=== PATIENT | male | born 1980 | race Caucasian/White ===

== ENCOUNTER 2017-01-13 21:07 | Emergency (ER) | payer OTHER ==
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
== END 2017-01-13 22:35 | disposition home or self-care (01) ==
LOC: ER 21:07
DX: S09.93XA Unspecified injury of face, initial encounter (principal); W10.8XXA Fall (on) (from) other stairs and steps, initial encounter; Y93.89 Activity, other specified; Y99.8 Other external cause status; Y92.89 Other specified places as the place of occurrence of the external cause
CPT/HCPCS: 99283

== ENCOUNTER 2018-02-04 07:39 | Emergency (ER) | payer OTHER ==
[2018-02-04 07:40] VITALS: BP 127/73
[2018-02-04] MEDS ORDERED: FLUORESCEIN 1MG EYE STRIP. ONE (07:46)
[2018-02-04] MEDS ORDERED: TETRACAINE 0.5% OPHTH SOLUTION 4ML BOTTLE. ONE (07:46)
[2018-02-04] MEDS ORDERED: POLY10DR LEFTEYE (07:58)
--- NOTE | 2018-02-04 07:59 | PHYS DOC ---
Past History Past Medical History: Diabetes, Hypertension Past Surgical History: Appendectomy Alcohol Use: Occasionally Drug Use: None Adult General Chief Complaint Chief Complaint: EYE PROBLEMS HPI HPI 37-year-old male patient with history of hypertension and diabetes complaining of foreign body sensation in left eye for the last 5 office with sensitivity to light. Patient states his and his son saw some spots in his eye. 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 Patient denies nausea and vomiting and fever and chills. Review of Systems Review of Systems Constitutional: Denies fever or chills [] Eyes: Denies change in visual acuity, reports redness and foreign body sensation HENT: Denies nasal congestion or sore throat [] Respiratory: Denies cough or shortness of breath [] Cardiovascular: No additional information not addressed in HPI [] GI: Denies abdominal pain, nausea, vomiting, bloody stools or diarrhea [] : Denies dysuria or hematuria [] Musculoskeletal: Denies back pain or joint pain [] Integument: Denies rash or skin lesions [] Neurologic: Denies headache, focal weakness or sensory changes [] Endocrine: Denies polyuria or polydipsia [] All other systems were reviewed and found to be within normal limits, except as documented in this note. Current Medications Current Medications Current Medications Medications (Trade) Dose Ordered Sig/Jayjay Start Time Stop Time Status Last Admin Dose Admin Fluorescein Sodium (Ful-Narcisa 1mg) 1 strip STK-MED ONCE 02/04/18 07:46 02/04/18 07:47 DC Tetracaine HCl (Tetracaine) 40 drop STK-MED ONCE 02/04/18 07:46 02/04/18 07:47 DC Allergies Allergies Allergies Coded Allergies Type Severity Reaction Last Updated Verified No Known Drug Allergies 02/04/18 No Physical Exam Physical Exam Constitutional: Well developed, well nourished, mild distress, non-toxic appearance. [] HENT: Normocephalic, atraumatic Eyes: PERRLA, EOMI, left conjunctiva erythema, no discharge, small foreign body in 4 o.clock of left cornea. [] Neck: Normal range of motion, no tenderness, supple, no stridor. [] Cardiovascular:Heart rate regular rhythm, no murmur [] Lungs & Thorax: Bilateral breath sounds clear to auscultation [] Extremities: No tenderness, no cyanosis, no clubbing, ROM intact, no edema. [] Neurologic: Alert and oriented X 3, normal motor function, normal sensory function, no focal deficits noted. [] Psychologic: Affect normal, judgement normal, mood normal. [] Current Patient Data Vital Signs Vital Signs Date Time Temp Pulse Resp B/P (MAP) Pulse Ox O2 Delivery O2 Flow Rate FiO2 02/04/18 07:40 98.0 91 16 99 Room Air EKG EKG [] Radiology/Procedures Radiology/Procedures [] Course & Med Decision Making Course & Med Decision Making Pertinent Labs and Imaging studies reviewed. (See chart for details) [] Dragon Disclaimer Dragon Disclaimer This electronic medical record was generated, in whole or in part, using a voice recognition dictation system. Foreign Body Removal Procedure Indication: [Left corneal foreign body] Procedure: Left cornea foreign body. Both after applying local tetracaine with 27-gauge needle without problem or remaining residual The patient tolerated the procedure [well]. Complications: [none Departure Departure: Impression: Primary Impression: Foreign body of left cornea Disposition: 01 HOME, SELF-CARE (At 0756) Condition: IMPROVED Referrals: DEX TRINH DO (PCP) Patient Instructions: Eye - Corneal Foreign Body Scripts Polymyxin B Sulf/Trimethoprim (POLYTRIM EYE DROPS) 10 Ml Drops 1 DROP LEFTEYE Q6HRS for 5 Days, #10 ML Prov: KAREN PAPPAS MD 02/04/18 KAREN PAPPAS MD Feb 04, 2018 07:59
== END 2018-02-04 08:04 | disposition home or self-care (01) ==
LOC: ER 07:39
DX: T15.02XA Foreign body in cornea, left eye, initial encounter (principal); E11.9 Type 2 diabetes mellitus without complications; I10 Essential (primary) hypertension
CPT/HCPCS: 65220; 99284

== ENCOUNTER 2018-03-16 21:01 | Emergency (ER) | payer OTHER ==
[~2018-03-16] VITALS: Ht 190.5 cm; Wt 126.0 kg
[2018-03-16 21:01] VITALS: BP 107/56
[~2018-03-16 21:01] MED LIST: POLY10DR LEFTEYE
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
--- NOTE | 2018-03-16 21:47 | RAD ---
Three-view left hand radiographs 03/16/2018 CLINICAL HISTORY: Left hand injury. PA, lateral and oblique digital radiographs of the left hand were obtained. No fracture or dislocation of the left hand is seen. No radiopaque foreign body is noted. IMPRESSION: No fracture or dislocation of the left hand is seen. Electronically signed by: Shravan Barkley MD (03/16/2018 9:44 PM) [facility]
== END 2018-03-16 21:50 | disposition home or self-care (01) ==
LOC: ER 21:01
DX: S60.222A Contusion of left hand, initial encounter (principal); E11.9 Type 2 diabetes mellitus without complications; I10 Essential (primary) hypertension; S00.83XA Contusion of other part of head, initial encounter; Y04.0XXA Assault by unarmed brawl or fight, initial encounter; Y93.89 Activity, other specified; Y99.8 Other external cause status; Y92.89 Other specified places as the place of occurrence of the external cause
CPT/HCPCS: 73130; 99284

== ENCOUNTER 2018-11-08 23:54 | Emergency (ER) | payer OTHER ==
[~2018-11-08] VITALS: Ht 190.5 cm; Wt 132.0 kg
[2018-11-08 23:57] VITALS: BP 168/113
--- NOTE | 2018-11-09 00:59 | PHYS DOC ---
Past History Past Medical History: Diabetes, Hypertension Past Surgical History: Appendectomy Alcohol Use: None Drug Use: None Adult General Chief Complaint Chief Complaint: COUGH HPI HPI Patient is a 38 yo male w/ pmh diabetes and htn who presents with complaint of cough, congestion, and body aches for 7-10 days. When symptoms began patient went to urgent care (last week) and was swabbed for strep which was negative. Patient reports he has a nonproductive cough that is occasionally so severe that he gags and occasionally vomits. Patient also reports nasal congestion and diffuse muscle aches. He reports his son had similar symptoms last week which resolved. He also reports travel to [place] in October. He denies chest pain , headaches, dizziness, itchy eyes, ringing in ears, nausea. He is up to date on flu shot. Review of Systems Review of Systems Constitutional: Denies fever or chills [] Eyes: Denies change in visual acuity, eyes itchiness HENT: admits nasal congestion, denies nasal discharge. Denies sinus pressure. Respiratory: Admits nonproductive cough Cardiovascular: Denies chest pain, pressure or palpitations. Admits to chest tightness. Musculoskeletal: Denies back pain or joint pain, admits to muscle aches Neurologic: Denies headache, focal weakness or sensory changes [] Complete systems were reviewed and found to be within normal limits, except as documented in this note. Current Medications Current Medications Current Medications Medications (Trade) Dose Ordered Sig/Jayjay Start Time Stop Time Status Last Admin Dose Admin Dexamethasone (Decadron) 10 mg 1X ONCE 11/09/18 01:00 11/09/18 01:01 11/09/18 00:31 10 MG Allergies Allergies Allergies Coded Allergies Type Severity Reaction Last Updated Verified No Known Drug Allergies 02/04/18 No Physical Exam Physical Exam Constitutional: Well developed, well nourished, no acute distress, non-toxic appearance. HENT: Normocephalic, atraumatic, bilateral TMs pink w/ good cone of light oropharynx moist, no oral exudates, nose normal. Eyes: PERRL, EOMI, conjunctiva normal, no discharge. Neck: Normal range of motion, no tenderness, supple, no meningeal signs r. Cardiovascular: Tachycardic, regular rhythm, no murmur Lungs & Thorax: Coarse breath sounds in bl lower lobes. Abdomen: Soft, no tenderness Skin: Warm, dry, no erythema, no rash. Extremities: No tenderness, ROM intact, no edema. Neurologic: Alert and oriented X 3, normal motor function, normal sensory function, no focal deficits noted. Psychologic: Affect normal, judgement normal, mood normal. EKG EKG [] Radiology/Procedures Radiology/Procedures 2 view CXR (preliminary interpretation by ED physician): no acute process. Course & Med Decision Making Course & Med Decision Making Patient is 38 yo nonsmoking male w/ PMH DM and htn who presented with complaint of dry cough, nasal congestion, and diffuse muscle aches for 1 week. Patient was swabbed for strep at outside facility which he reports was negative. On physical exam he is afebrile, tachycardic and mildly hypertensive at rest in bed. Lung sounds revealed moderate rhonchi bilaterally through lower lung khan. The rest of physical exam was unremarkable. Patient tested negative for flu A/B. Chest xray unremarkable. Discussed with patient that he likely had bronchitis d/t lung sounds, dry cough, and unremarkable xray. Treated patient with dexamethasone. Prescribed tesslon pearle, pro air, and prednisone for home. Discussed with patient the purpose of each medication and that he could return to work. Patient vocalized understanding and agreement with plan. Dragon Disclaimer Dragon Disclaimer This electronic medical record was generated, in whole or in part, using a voice recognition dictation system. Departure Departure: Impression: Primary Impression: Bronchitis Disposition: 01 HOME, SELF-CARE Condition: STABLE Referrals: DEX TRINH DO (PCP) Patient Instructions: Acute Bronchitis, Gijv-um-Ptak Scripts Benzonatate (TESSALON PERLE) 100 Mg Capsule 1 CAP PO TID PRN for COUGH, #21 CAP Prov: SHEELA MURPHY DO 11/09/18 Prednisone (PREDNISONE) 20 Mg Tablet 2 TAB PO DAILY for Bronchitis, #8 TAB Start this on 11/10/18 Prov: SHEELA MURPHY DO 11/09/18 Albuterol Sulfate (PROAIR HFA INHALER) 8.5 Gm Hfa.aer.ad 1 PUFF INH PRN Q6HRS PRN for WHEEZING, #1 INHALER 0 Refills Prov: SHEELA MURPHY DO 11/09/18 SHEELA MURPHY DO Nov 09, 2018 00:59
[2018-11-09] MEDS ORDERED: DEXAMETHASONE 4 MG TABLET PO ONE (01:00)
[2018-11-09 01:06] LABS: INFLUENZA A PATIENT NEGATIVE (NEGATIVE); INFLUENZA B PATIENT NEGATIVE (NEGATIVE)
[2018-11-09] MEDS ORDERED: PRED20TA PO (01:15)
[2018-11-09] MEDS ORDERED: ALBU2.5V8 INH (01:15)
[2018-11-09] MEDS ORDERED: BENZ100C PO (01:15)
--- NOTE | 2018-11-09 08:15 | RAD ---
Chest, 2 views, 11/09/2018: HISTORY: Cough, congestion The heart size and pulmonary vascularity are normal. No pulmonary infiltrate is seen. There is no evidence of pleural fluid. IMPRESSION: No acute cardiopulmonary abnormality is detected. Electronically signed by: Taiwo Hendricks MD (11/09/2018 8:10 AM) [facility]
== END 2018-11-09 01:27 | disposition home or self-care (01) ==
LOC: ER 23:54
DX: J40 Bronchitis, not specified as acute or chronic (principal); E11.9 Type 2 diabetes mellitus without complications; I10 Essential (primary) hypertension
CPT/HCPCS: 71046; 87804; 99284; J8540

== ENCOUNTER 2019-07-11 16:58 | Emergency (ER) | payer OTHER ==
[~2019-07-11] VITALS: Ht 190.5 cm; Wt 133.0 kg
[~2019-07-11 16:58] MED LIST changes: +ALBU2.5V8 INH; +BENZ100C PO; +PRED20TA PO
--- NOTE | 2019-07-11 17:13 | PHYS DOC ---
Past History Past Medical History: Anxiety, Diabetes, Hypertension (BRITTANIE AGUSTIN DO) Past Surgical History: Appendectomy (BRITTANIE AGUSTIN DO) Smoking: Non-smoker Alcohol Use: None Drug Use: None (BRITTANIE AGUSTIN DO) Adult General Chief Complaint Chief Complaint: CHEST PAIN HPI HPI Patient is a 39-year-old male presents with chest pain that has been going on for the past several days along with high blood pressure. Patient is treated for high blood pressure and diabetes. Notes that he normally runs a fast heart rate that "is somewhere over 100." He denies any radiation of the discomfort. No nausea or vomiting. No respirophasic component to it no worsening with exertion. Pain is mild to moderate in intensity. No family history of early cardiac disease. Patient denies any PE risk factors to include trauma, stasis, or known hypercoagulable state.[] (BRITTANIE AGUSTIN DO) Review of Systems Review of Systems Constitutional: Denies fever or chills [] Eyes: Denies change in visual acuity, redness, or eye pain [] HENT: Denies nasal congestion or sore throat [] Respiratory: Denies cough or shortness of breath [] Cardiovascular: No additional information not addressed in HPI [] GI: Denies abdominal pain, nausea, vomiting, bloody stools or diarrhea [] : Denies dysuria or hematuria [] Musculoskeletal: Denies back pain or joint pain [] Integument: Denies rash or skin lesions [] Neurologic: Denies headache, focal weakness or sensory changes [] Endocrine: Denies polyuria or polydipsia [] All other systems were reviewed and found to be within normal limits, except as documented in this note. (BRITTANIE AGUSTIN DO) Allergies Allergies Allergies Coded Allergies Type Severity Reaction Last Updated Verified No Known Drug Allergies 02/04/18 No (BRITTANIE AGUSTIN DO) Physical Exam Physical Exam Constitutional: Well developed, well nourished, no acute distress, non-toxic appearance. [] HENT: Normocephalic, atraumatic, bilateral external ears normal, oropharynx moist, no oral exudates, nose normal. [] Eyes: PERRLA, EOMI, conjunctiva normal, no discharge. [] Neck: Normal range of motion, no tenderness, supple, no stridor. [] Cardiovascular:Heart rate is tachycardic with a regular rhythm, no murmur [] Lungs & Thorax: Bilateral breath sounds clear to auscultation [] Abdomen: Bowel sounds normal, soft, no tenderness, no masses, no pulsatile masses. [] Skin: Warm, dry, no erythema, no rash. [] Back: No tenderness, no CVA tenderness. [] Extremities: No tenderness, no cyanosis, no clubbing, ROM intact, no edema. [] Neurologic: Alert and oriented X 3, normal motor function, normal sensory function, no focal deficits noted. [] Psychologic: Affect normal, judgement normal, mood normal. [] (BRITTANIE AGUSTIN DO) EKG EKG EKG shows a sinus tachycardia at 114 bpm, normal axis, normal QTC, no ST elevations. No old EKG available for comparison. Interpreted by me at 1707[] (BRITTANIE AGUSTIN DO) Radiology/Procedures Radiology/Procedures [] (BRITTANIE AGUSTIN DO) Impressions: PORTABLE CHEST 1V History: Chest pain Comparison: November 09, 2018 Findings: No consolidation or pleural effusion. Normal heart size. Impression: 1. No acute cardiopulmonary process. Electronically signed by: Dutch Reis DO (07/11/2019 5:45 PM) [id number] DICTATED AND SIGNED BY: DUTCH REIS DO DATE: 07/11/191744 CC: DULCE HADLEY MD; BRITTANIE AGUSTIN DO ~ (CASSANDRA GALEAS DO) Course & Med Decision Making Course & Med Decision Making Pertinent Labs and Imaging studies reviewed. (See chart for details) ED course: Patient arrived, was placed in bed, and tolerated exam well. He was given aspirin. At the time of this dictation, laboratory testing is in process along with imaging. Patient care is being endorsed to the nighttime physician at 1800 with these results in progress.[] (BRITTANIE AGUSTIN DO) Course & Med Decision Making Patient's EKG is unremarkable. His chest x-ray is unremarkable. His troponin is negative. D-dimer is negative. The patient's blood sugars over 300. We will give the patient a liter of normal saline. His anion gap is 15. This is one above normal. I suspect his discomfort is mostly due to his elevated blood sugar. The patient is on diabetes medication, but does not check his blood sugar daily. He has a meter and will start taking it every morning. He is due for follow-up as he change medications 3 months ago. The 1 L fluid has improved the patient's heart rate to the 90s. His blood pressure is normal. The patient will follow up with his primary care physician about his diabetes. We gave him 5 units of regular insulin. His repeat blood sugar was 202. He is stable for discharge at this time. (CASSANDRA GALEAS DO) Dragon Disclaimer Dragon Disclaimer This electronic medical record was generated, in whole or in part, using a voice recognition dictation system. (BRITTANIE AGUSTIN DO) The HEART Score for CP Pts HEART Score for Chest Pain: HEART Score for Chest Pain Response (Comments) Value History Moderately Suspicious 1 ECG Normal 0 Age < 45 0 Risk Factors 1 or 2 Risk Factors 1 Troponin < Normal Limit 0 Total 2 Risk Factors: Risk Factors: DM, Current or recent (<one month) smoker, HTN, HLP, family history of CAD, obesity. Risk Scores: Score 0 - 3: 2.5% MACE over next 6 weeks - Discharge Home Score 4 - 6: 20.3% MACE over next 6 weeks - Admit for Clinical Observation Score 7 - 10: 72.7% MACE over next 6 weeks - Early Invasive Strategies (CASSANDRA GALEAS DO) Departure Departure: Impression: Primary Impression: Hyperglycemia due to type 2 diabetes mellitus Additional Impression: Chest pain Disposition: 01 HOME, SELF-CARE Condition: STABLE Referrals: DULCE HADLEY MD (PCP) Patient Instructions: Chest Pain (Nonspecific), Ecjl-rd-Evbi, Hyperglycemia, Nbqg-gr-Xboz Problem Qualifiers Primary Impression: Hyperglycemia due to type 2 diabetes mellitus Diabetes mellitus fdc insulin use: without fdc use Qualified Codes: E11.65 - Type 2 diabetes mellitus with hyperglycemia Additional Impression: Chest pain Chest pain type: other chest pain Qualified Codes: R07.89 - Other chest pain BRITTANIE AGUSTIN DO Jul 11, 2019 17:13 CASSANDRA GALEAS DO Jul 11, 2019 18:55
--- NOTE | 2019-07-11 17:13 | EKG ---
[address] [address] Test Date: 2019-07-11 Test Time: 17:05:27 Pat Name: ALFREDO BURNS Department: Room: Gender: M Staff Therapist: GAIL : [id number] Requested By: BRITTANIE AGUSTIN Order Number: [id number] Reading MD: Measurements Intervals [place] Rate: 114 P: -8 SD: 160 QRS: 52 QRSD: 92 T: 25 QT: 312 QTc: 433 Interpretive Statements SINUS TACHYCARDIA QRS(T) CONTOUR ABNORMALITY CONSIDER ANTEROLATERAL MYOCARDIAL DAMAGE POSSIBLY ABNORMAL ECG RI6.01 No previous ECG available for comparison
[2019-07-11] MEDS ORDERED: ASPIRIN 81 MG TAB.CHEW PO ONE (17:30)
[2019-07-11 17:42] LABS: BASO # 0.1 x10^3/uL (0.0-0.2); BASO % 1 % (0-3); EOS # 0.1 x10^3/uL (0.0-0.7); EOS % 2 % (0-3); HEMATOCRIT 43.5 % (39.0-53.0); HEMOGLOBIN 15.1 g/dL (13.0-17.5); LYMPH # 2.2 x10^3/uL (1.0-4.8); LYMPH % 41 % (24-48); MEAN CORPUSCULAR HEMOGLOBIN 32 pg (25-35); MEAN CORPUSCULAR HGB CONC 35 g/dL (31-37); MEAN CORPUSCULAR VOLUME 91 fL (79-100); MONO # 0.4 x10^3/uL (0.0-1.1); MONO % 7 % (0-9); NEUT # 2.7 x10^3uL (1.8-7.7); NEUT % 49 % (31-73); PLATELET COUNT 278 x10^3/uL (140-400); RED BLOOD COUNT 4.75 x10^6/uL (4.30-5.70); RED CELL DISTRIBUTION WIDTH 12.6 % (11.5-14.5); WHITE BLOOD COUNT 5.5 x10^3/uL (4.0-11.0)
[2019-07-11 17:47] LABS: BARBITURATES NEG (NEG); BENZODIAZEPINES NEG (NEG); CANNABINOIDS NEG (NEG); COCAINE NEG (NEG); METHADONE NEG (NEG); OPIATES NEG (NEG); PHENCYCLIDINE NEG (NEG)
--- NOTE | 2019-07-11 17:47 | RAD ---
PORTABLE CHEST 1V History: Chest pain Comparison: November 09, 2018 Findings: No consolidation or pleural effusion. Normal heart size. Impression: 1. No acute cardiopulmonary process. Electronically signed by: Dutch Reis DO (07/11/2019 5:45 PM) [id number]
[2019-07-11 17:49] LABS: AMPHETAMINE/METHAMPHETAMINE NEG (NEG)
[2019-07-11 17:55] LABS: ALBUMIN/GLOBULIN RATIO 1.2 (1.0-1.7); CALCIUM 9.1 mg/dL (8.5-10.1); CREATININE 1.1 mg/dL (0.7-1.3); GFR 74.1; MAGNESIUM 1.4 mg/dL (1.8-2.4); POTASSIUM 4.3 mmol/L (3.5-5.1); TOTAL BILIRUBIN 0.5 mg/dL (0.2-1.0); TOTAL PROTEIN 7.4 g/dL (6.4-8.2)
[2019-07-11 18:45] LABS: BACTERIA,URINE 0 /HPF (0-FEW); BILIRUBIN,URINE NEG (NEG); CLARITY,URINE CLEAR; COLOR,URINE YELLOW; GLUCOSE,URINE >=1000 mg/dL (NEG); NITRITE,URINE NEG (NEG); RBC,URINE 0 /HPF (0-2); SQUAMOUS EPITHELIAL CELL,UR OCC /LPF; UROBILINOGEN,URINE 0.2 mg/dL (0.2 mg/dL); WBC,URINE OCC /HPF (0-4)
[2019-07-11] MEDS ORDERED: IV NORMAL SALINE 1,000ML 1,000 ML IV ONE (18:45)
[2019-07-11] MEDS ORDERED: INSULIN REGULAR 100 UNIT/ML 3ML VIAL. IV ONE (19:15)
[2019-07-11 19:31] VITALS: BP 139/83
== END 2019-07-11 19:47 | disposition home or self-care (01) ==
LOC: ER 16:58
DX: E11.65 Type 2 diabetes mellitus with hyperglycemia (principal); R07.89 Other chest pain; I10 Essential (primary) hypertension; F41.9 Anxiety disorder, unspecified
CPT/HCPCS: 36415; 71045; 80053; 80307; 81001; 82947; 83690; 83735; 83880; 84443; 84484; 85025; 85379; 85610; 85730; 93005; 96374; 99285; J1815; J7030

== ENCOUNTER 2019-12-30 15:25 | Emergency (ER) | payer OTHER ==
[~2019-12-30] VITALS: Ht 190.5 cm; Wt 136.0 kg
[2019-12-30 15:43] VITALS: BP 114/76
--- NOTE | 2019-12-30 16:07 | RAD ---
Examination: ELBOW RIGHT 3V History: Swelling and pain Comparison/Correlation: 12/27/2019 right elbow x-ray exam Findings: 3 images of the right elbow were obtained. Joint spaces are normal. Enthesopathy is noted. No fracture or bone destruction. Soft tissue swelling posterior to the elbow is present. This is more evident in the interval. No joint effusion. Impression: Triceps bursitis. Electronically signed by: Hermilo Small MD (12/30/2019 4:04 PM) [id number]
--- NOTE | 2019-12-30 16:42 | PHYS DOC ---
Past History Past Medical History: Anxiety, Diabetes, Hypertension Past Surgical History: Appendectomy Smoking: Non-smoker Alcohol Use: Occasionally Drug Use: None Adult General Chief Complaint Chief Complaint: UPPER EXTREMITY PAIN HPI HPI 39-year-old male presents with right elbow swelling and pain. The patient started pain while he was at work yesterday. It occurred spontaneously with no inciting event. He was seen in urgent care and hold it was inflammation for bone spur. X-rays were negative at that time. The patient presents to the ER today because the swelling is worse, it feels warm to the touch, and is quite painful. He denies trauma. He denies fever or chills. No history of gout or DVT. Review of Systems Review of Systems Constitutional: Denies fever or chills [] Eyes: Denies change in visual acuity, redness, or eye pain [] HENT: Denies nasal congestion or sore throat [] Respiratory: Denies cough or shortness of breath [] Cardiovascular: No additional information not addressed in HPI [] GI: Denies abdominal pain, nausea, vomiting, bloody stools or diarrhea [] : Denies dysuria or hematuria [] Musculoskeletal: Right elbow pain[] Integument: Denies rash or skin lesions [] Neurologic: Denies headache, focal weakness or sensory changes [] Endocrine: Denies polyuria or polydipsia [] All other systems were reviewed and found to be within normal limits, except as documented in this note. Allergies Allergies Allergies Coded Allergies Type Severity Reaction Last Updated Verified No Known Drug Allergies 02/04/18 No Physical Exam Physical Exam Constitutional: Well developed, well nourished, no acute distress, non-toxic appearance. [] HENT: Normocephalic, atraumatic, bilateral external ears normal, oropharynx moist, no oral exudates, nose normal. [] Eyes: PERRLA, EOMI, conjunctiva normal, no discharge. [] Neck: Normal range of motion, no tenderness, supple, no stridor. [] Cardiovascular:Heart rate regular rhythm, no murmur [] Lungs & Thorax: Bilateral breath sounds clear to auscultation [] Abdomen: Bowel sounds normal, soft, no tenderness, no masses, no pulsatile masses. [] Skin: Warm, dry, no erythema, no rash. [] Back: No tenderness, no CVA tenderness. [] Extremities: Right arm and forearm to the mid humerus is swollen and taunt. Some erythema and warmth. No obvious abscess or sentinel location for infection.[] Neurologic: Alert and oriented X 3, normal motor function, normal sensory function, no focal deficits noted. [] Psychologic: Affect normal, judgement normal, mood normal. [] Current Patient Data Vital Signs Vital Signs Date Time Temp Pulse Resp B/P (MAP) Pulse Ox O2 Delivery O2 Flow Rate FiO2 12/30/19 15:43 99.0 116 18 114/76 (89) 98 Room Air EKG EKG [] Radiology/Procedures Radiology/Procedures [] Impressions: EXAM: Right upper extremity venous Doppler sonogram. HISTORY: Pain and swelling. TECHNIQUE: Stone scale and color Doppler sonographic evaluation of the right upper extremity veins with spectral waveform analysis was performed. FINDINGS: There is normal color flow, normal compressibility and there are normal spectral waveforms in the upper extremity veins. IMPRESSION: No Doppler evidence of upper extremity deep venous thrombosis. Electronically signed by: Kelsie Hubbard MD (12/30/2019 5:22 PM) [id number] DICTATED AND SIGNED BY: KELSIE HUBBARD MD DATE: 12/30/19 1722 CC: CASSANDRA GALEAS DO; MARGARITO JONES PAC ~ Addendum: In the impression, terminology of triceps bursitis was utilized. More commonly used, terminology of olecranon bursitis corresponds to the findings present. Electronically signed by: Hermilo Cifuentes MD (12/30/2019 4:23 PM) [id number] DICTATED AND SIGNED BY: HERMILO CIFUENTES MD DATE: 12/30/19 1623 CC: CASSANDRA GALEAS DO; MARGARITO JONES PAC ~ Examination: ELBOW RIGHT 3V History: Swelling and pain Comparison/Correlation: 12/27/2019 right elbow x-ray exam Findings: 3 images of the right elbow were obtained. Joint spaces are normal. Enthesopathy is noted. No fracture or bone destruction. Soft tissue swelling posterior to the elbow is present. This is more evident in the interval. No joint effusion. Impression: Triceps bursitis. Electronically signed by: Hermilo Cifuentes MD (12/30/2019 4:04 PM) [id number] DICTATED AND SIGNED BY: HERMILO CIFUENTES MD DATE: 12/30/19 1604 CC: CASSANDRA GALEAS DO; MARGARITO JONES PAC ~ Course & Med Decision Making Course & Med Decision Making Pertinent Labs and Imaging studies reviewed. (See chart for details) Patient's x-rays negative for acute findings. His ultrasound does not show DVT. His labs are unremarkable except for a blood sugar of 230. His uric acid is normal. I believe is most likely that this is cellulitis. I will treat him with a gram of Rocephin in the ED and discharge him an additional 7 days of doxycycline. [] Dragon Disclaimer Dragon Disclaimer This electronic medical record was generated, in whole or in part, using a voice recognition dictation system. Departure Departure: Impression: Primary Impression: Cellulitis of right arm Additional Impression: Hyperglycemia Disposition: 01 HOME, SELF-CARE Condition: STABLE Referrals: MARGARITO JONES PAC (PCP) Patient Instructions: Cellulitis, [id number] Scripts Doxycycline Hyclate (DOXYCYCLINE HYCLATE) 100 Mg Tablet 1 TAB PO BID for cellulitis, #14 TAB Prov: CASSANDRA GALEAS DO 12/30/19 Problem Qualifiers CASSANDRA GALEAS DO Dec 30, 2019 16:42
[2019-12-30] MEDS ORDERED: KETOROLAC 30 MG/ML VIAL. IVP ONE (17:15)
--- NOTE | 2019-12-30 17:25 | RAD ---
EXAM: Right upper extremity venous Doppler sonogram. HISTORY: Pain and swelling. TECHNIQUE: Stone scale and color Doppler sonographic evaluation of the right upper extremity veins with spectral waveform analysis was performed. FINDINGS: There is normal color flow, normal compressibility and there are normal spectral waveforms in the upper extremity veins. IMPRESSION: No Doppler evidence of upper extremity deep venous thrombosis. Electronically signed by: Kelsie Nino MD (12/30/2019 5:22 PM) [id number]
[2019-12-30 17:37] LABS: BASO % 0 % (0-3); EOS % 0 % (0-3); HEMATOCRIT 42.3 % (39.0-53.0); HEMOGLOBIN 14.7 g/dL (13.0-17.5); LYMPH # 1.5 x10^3/uL (1.0-4.8); LYMPH % 15 % (24-48); MEAN CORPUSCULAR HEMOGLOBIN 33 pg (25-35); MEAN CORPUSCULAR HGB CONC 35 g/dL (31-37); MEAN CORPUSCULAR VOLUME 94 fL (79-100); MONO # 1.1 x10^3/uL (0.0-1.1); MONO % 10 % (0-9); NEUT # 7.7 x10^3uL (1.8-7.7); NEUT % 75 % (31-73); PLATELET COUNT 239 x10^3/uL (140-400); RED BLOOD COUNT 4.52 x10^6/uL (4.30-5.70); RED CELL DISTRIBUTION WIDTH 13.3 % (11.5-14.5); WHITE BLOOD COUNT 10.4 x10^3/uL (4.0-11.0)
[2019-12-30 17:42] LABS: CALCIUM 8.9 mg/dL (8.5-10.1); CREATININE 1.1 mg/dL (0.7-1.3); GFR 74.1; POTASSIUM 4.2 mmol/L (3.5-5.1)
[2019-12-30 17:48] LABS: ALBUMIN 3.5 g/dL (3.4-5.0); TOTAL BILIRUBIN 0.7 mg/dL (0.2-1.0); TOTAL PROTEIN 7.1 g/dL (6.4-8.2); URIC ACID 5.6 mg/dL (3.5-7.2)
[2019-12-30] MEDS ORDERED: DOXY100T PO (18:07)
[2019-12-30] MEDS ORDERED: IV NORMAL SALINE 100ML 100 ML ONE (18:12)
[2019-12-30] MEDS ORDERED: cefTRIAXone SODIUM 1 GM VIAL ONE (18:12)
[2019-12-30] MEDS ORDERED: ONDANSETRON PF 4 MG/2 ML VIAL. ONE (18:12)
[2019-12-30] MEDS ORDERED: HYDR-3165 PO (18:13)
[2019-12-30 18:14] LABS: % ATYL 1 % (0-0); % LYMPHS 18 % (24-48); % MONOS 5 % (0-10); % SEGS 76 % (35-66)
[2019-12-30] MEDS ORDERED: MORPHINE SULFATE 4 MG/ML DISP.SYRIN. IV ONE (18:15)
[2019-12-30] MEDS ORDERED: ONDANSETRON PF 4 MG/2 ML VIAL. IVP ONE (18:15)
[2019-12-30 18:18] LABS: PLT ESTIMATE ADEQUATE (ADEQUATE)
== END 2019-12-30 18:35 | disposition home or self-care (01) ==
LOC: ER 15:25
DX: L03.113 Cellulitis of right upper limb (principal); R60.0 Localized edema; E11.65 Type 2 diabetes mellitus with hyperglycemia; F41.9 Anxiety disorder, unspecified; I10 Essential (primary) hypertension; Z90.89 Acquired absence of other organs
CPT/HCPCS: 36415; 73080; 80053; 84550; 85007; 85025; 93971; 96365; 96375; 99285; J0696; J1885; J2270; J2405

== ENCOUNTER 2020-03-01 10:37 | Emergency (ER) | payer OTHER ==
[~2020-03-01] VITALS: Ht 190.5 cm; Wt 140.0 kg
[~2020-03-01 10:37] MED LIST changes: +DOXY100T PO; +HYDR-3165 PO
[2020-03-01 10:45] VITALS: BP 168/100
--- NOTE | 2020-03-01 11:09 | RAD ---
KNEE LEFT 3V History: Pain. Technique: 3 views left knee. Comparison: None. Findings: Normal alignment. No fracture. Prepatellar soft tissue swelling. Small knee joint effusion. Impression: 1. No acute osseous abnormality. 2. Prepatellar soft tissue swelling. Electronically signed by: Dutch Reis DO (03/01/2020 11:06 AM) [facility] [place]
--- NOTE | 2020-03-01 11:22 | PHYS DOC ---
Past History Past Medical History: Anxiety, Depression, Diabetes, Hypertension Past Surgical History: Appendectomy Smoking: Non-smoker Alcohol Use: Occasionally Drug Use: None General Adult EDM: Chief Complaint: KNEE INJURY HPI: HPI: Patient is a 39-year-old male who presents to ER today for evaluation of left knee pain since last night. 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 Patient complained of pain whenever he walks. Patient denies any other injury. Review of Systems: Review of Systems: Constitutional: Denies fever or chills Eyes: Denies change in visual acuity HENT: Denies nasal congestion or sore throat Respiratory: Denies cough or shortness of breath Cardiovascular: Denies chest pain or edema GI: Denies abdominal pain, nausea, vomiting, bloody stools or diarrhea : Denies dysuria Musculoskeletal: Denies back pain, positive for left knee pain. Integument: Denies rash Neurologic: Denies headache, focal weakness or sensory changes Endocrine: Denies polyuria or polydipsia Lymphatic: Denies swollen glands Psychiatric: Denies depression or anxiety Heart Score: Risk Factors: Risk Factors: DM, Current or recent (<one month) smoker, HTN, HLP, family history of CAD, obesity. Risk Scores: Score 0 - 3: 2.5% MACE over next 6 weeks - Discharge Home Score 4 - 6: 20.3% MACE over next 6 weeks - Admit for Clinical Observation Score 7 - 10: 72.7% MACE over next 6 weeks - Early Invasive Strategies Allergies: Allergies: Allergies Coded Allergies Type Severity Reaction Last Updated Verified No Known Drug Allergies 02/04/18 No Physical Exam: PE: Constitutional: Well developed, well nourished, no acute distress, non-toxic appearance. [] HENT: Normocephalic, atraumatic, bilateral external ears normal, oropharynx moist, no oral exudates, nose normal. [] Eyes: PERRLA, EOMI, conjunctiva normal, no discharge. [] Neck: Normal range of motion, no tenderness, supple, no stridor. [] Cardiovascular:Heart rate regular rhythm, no murmur [] Lungs & Thorax: Bilateral breath sounds clear to auscultation [] Abdomen: Bowel sounds normal, soft, no tenderness, no masses, no pulsatile masses. [] Skin: Warm, dry, no erythema, no rash. [] Back: No tenderness, no CVA tenderness. [] Extremities: Left knee is tender to palpation at the medial meniscus area, there is small skin contusion, left knee joint is stable, no deformity. Neurologic: Alert and oriented X 3, normal motor function, normal sensory function, no focal deficits noted. [] Psychologic: Affect normal, judgement normal, mood normal. [] Current Patient Data: Vital Signs: Vital Signs Date Time Temp Pulse Resp B/P (MAP) Pulse Ox O2 Delivery O2 Flow Rate FiO2 03/01/20 10:45 98.8 105 18 168/100 (122) 98 Room Air EKG: EKG: [] Radiology/Procedures: Radiology/Procedures: [][address] [address] IMAGING REPORT Signed PATIENT: ALFREDO BURNS ACCOUNT: [id number] : 1980 LOCATION: ER AGE: 39 SEX: M EXAM STATUS: REG ER ORD. PHYSICIAN: TYLER ZULUAGA DO REASON: Injury from fall 02/29/20, medial pain to left knee PROCEDURE: KNEE LEFT 3V KNEE LEFT 3V History: Pain. Technique: 3 views left knee. Comparison: None. Findings: Normal alignment. No fracture. Prepatellar soft tissue swelling. Small knee joint effusion. Impression: 1. No acute osseous abnormality. 2. Prepatellar soft tissue swelling. Electronically signed by: Dutch Reis DO (03/01/2020 11:06 AM) [facility] [place] DICTATED AND SIGNED BY: DUTCH REIS DO DATE: 03/01/20 1106 CC: TYLER ZULUAGA DO; MARGARITO JONES PAC ~ Course & Med Decision Making: Course & Med Decision Making Pertinent Labs and Imaging studies reviewed. (See chart for details) [] Dragon Disclaimer: Dragon Disclaimer: This electronic medical record was generated, in whole or in part, using a voice recognition dictation system. Departure Departure: Impression: Primary Impression: Contusion of knee, left Disposition: 01 HOME, SELF-CARE Condition: STABLE Referrals: MARGARITO JONES PAC (PCP) please follow up with your doctor next week for reevaluation if you continue to have pain Patient Instructions: Contusion Scripts Tramadol Hcl (TRAMADOL HCL) 50 Mg Tablet 50 MG PO PRN Q6HRS PRN for PAIN, #15 TAB Prov: TYLER ZULUAGA DO 03/01/20 Naproxen Sodium (ANAPROX DS) 550 Mg Tablet 1 TAB PO BID for PAIN for 15 Days, #30 TAB 0 Refills Prov: TYLER ZULUAGA DO 03/01/20 TYLER ZULUAGA DO March 01, 2020 11:22
[2020-03-01] MEDS ORDERED: NAPR-682 PO (11:34)
[2020-03-01] MEDS ORDERED: TRAM50TA PO (11:34)
== END 2020-03-01 11:39 | disposition home or self-care (01) ==
LOC: ER 10:37
DX: S80.02XA Contusion of left knee, initial encounter (principal); E11.9 Type 2 diabetes mellitus without complications; I10 Essential (primary) hypertension; W01.0XXA Fall on same level from slipping, tripping and stumbling without subsequent striking against object, initial encounter; Y93.01 Activity, walking, marching and hiking; Y92.89 Other specified places as the place of occurrence of the external cause; Y99.8 Other external cause status
CPT/HCPCS: 73562; 99283

== ENCOUNTER 2021-06-03 17:23 | Emergency (ER) | payer BC ==
[~2021-06-03] VITALS: Ht 188 cm; Wt 240.0 kg
[~2021-06-03 17:23] MED LIST changes: +NAPR-682 PO; +TRAM50TA PO
--- NOTE | 2021-06-03 18:06 | PHYS DOC ---
Past History Past Medical History: Anxiety, Depression, Diabetes, Hypertension Past Surgical History: Appendectomy Smoking: Non-smoker Alcohol Use: Occasionally Drug Use: None General Adult EDM: Chief Complaint: NAUSEA/VOMITING/DIARRHEA HPI: HPI: ".. I still feel terrible... Still nauseated... Feels short of breath.... My symptoms have not gotten better.... I cannot go back to work until I have a doctor's excuse... They said come to the emergency department and get a work excuse... I do not really want a labs..." Patient is a 41 year old male who presents with above hx and complaints with hx of + COVID May 24. Still having symptoms which have not resolved. Pt. did not get the COVID vaccination. Pt. works requires an work excuse because it has been over 6 days since diagnosis. Patient denies any recent travel. Patient denies any sick ill contacts. Patient denies any history of immunosuppression. Patient works with meat processing. Review of Systems: Review of Systems: Constitutional: Denies fever or chills Eyes: Denies change in visual acuity HENT: Denies nasal congestion or sore throat. Complains of loss of taste Respiratory: Complains of nonproductive cough Cardiovascular: Complaints of dyspnea GI: Complains of abdominal pain, nausea, vomiting, bloody stools or diarrhea : Denies dysuria Musculoskeletal: Complains of generalized myalgia arthralgia and malaise Integument: Denies rash Neurologic: Denies headache, focal weakness or sensory changes Endocrine: Denies polyuria or polydipsia Lymphatic: Denies swollen glands Psychiatric: Denies depression or anxiety Family History: Family History: Noncontributory to presentation Current Medications: Current Meds: See nursing for home meds Allergies: Allergies: Allergies Coded Allergies Type Severity Reaction Last Updated Verified No Known Drug Allergies 02/04/18 No Physical Exam: PE: Constitutional: Well developed, well nourished, moderate distress, non-toxic appearance. [] HENT: Normocephalic, atraumatic, bilateral external ears normal, oropharynx dry, no oral exudates, nose normal. [] Eyes: PERRLA, EOMI, conjunctiva normal, no discharge. [] Neck: Normal range of motion, no tenderness, supple, no stridor. [] Cardiovascular:Heart rate regular rhythm, no murmur [] Lungs & Thorax: Bilateral breath sounds "apex auscultation [] Abdomen: Bowel sounds normal, soft, no tenderness, no masses, no pulsatile masses. [] Skin: Warm, dry, no erythema, no rash. [] Back: No tenderness, no CVA tenderness. [] Extremities: No tenderness, no cyanosis, no clubbing, ROM intact, no edema. [] Neurologic: Alert and oriented X 3, normal motor function, normal sensory function, no focal deficits noted. [] Psychologic: Affect normal, judgement normal, mood normal. [] EKG: EKG: Patient declines [] Radiology/Procedures: Radiology/Procedures: Patient declines [] Heart Score: C/O Chest Pain: No Risk Factors: Risk Factors: DM, Current or recent (<one month) smoker, HTN, HLP, family history of CAD, obesity. Risk Scores: Score 0 - 3: 2.5% MACE over next 6 weeks - Discharge Home Score 4 - 6: 20.3% MACE over next 6 weeks - Admit for Clinical Observation Score 7 - 10: 72.7% MACE over next 6 weeks - Early Invasive Strategies Course & Med Decision Making: Course & Med Decision Making Pertinent Labs and Imaging studies reviewed. (See chart for details) Patient continues self-isolation. Wear a mask covers nose and mouth. Frequent handwashing's. Follow-up with primary care. Take Zofran 8 mg up to 4 times a day for active nausea and vomiting. Tylenol and ibuprofen for discomfort push fluids. Did recommend the patient get flu shot and Covid vaccination when he is over this acute illness. Impression: 1. Covid-infection - Unvaccinated- + May 24 2. Viral syndrome [] Dragon Disclaimer: Dragon Disclaimer: This electronic medical record was generated, in whole or in part, using a voice recognition dictation system. Departure Departure: Referrals: DULCE HADLEY MD (PCP) Scripts Ondansetron Hcl (ZOFRAN) 4 Mg Tablet 8 MG PO QIDPRN PRN for NAUSEA/VOMITING, #30 TAB Prov: KOKO GUERRERO MD 06/03/21 KOKO GUERRERO MD Jun 03, 2021 18:06
[2021-06-03] MEDS ORDERED: ONDA4TAB7 PO (18:10)
[2021-06-03] MEDS ORDERED: ONDANSETRON ODT 4 MG TAB.RAPDIS PO ONE (18:15)
[2021-06-03 19:08] VITALS: BP 121/67
== END 2021-06-03 19:06 | disposition home or self-care (01) ==
LOC: ER 17:23
DX: U07.1 COVID-19 (principal); B34.9 Viral infection, unspecified; E11.9 Type 2 diabetes mellitus without complications; I10 Essential (primary) hypertension; Z90.89 Acquired absence of other organs
CPT/HCPCS: 99283; Q0162; 99284

== ENCOUNTER 2022-02-13 06:39 | Emergency (ER) | payer BC, OTHER ==
[~2022-02-13] VITALS: Ht 193 cm; Wt 127.6 kg
[~2022-02-13 06:39] MED LIST changes: +ONDA4TAB7 PO
--- NOTE | 2022-02-13 06:58 | PHYS DOC ---
Past History Past Medical History: Anxiety, Depression, Diabetes, Hypertension Past Surgical History: No Surgical History Smoking: Non-smoker Alcohol Use: Occasionally Drug Use: None General Adult EDM: Chief Complaint: NAUSEA/VOMITING/DIARRHEA HPI: HPI: 41-year-old male presents with vomiting and diarrhea. Patient has had nausea for several days but started vomiting last night. He continues to have vomiting this morning. He is unable to keep anything down. He came in just to make sure there is nothing more serious going on. Denies fever or chills. He has had a lot of stress lately. Review of Systems: Review of Systems: Constitutional: Denies fever or chills Eyes: Denies change in visual acuity HENT: Denies nasal congestion or sore throat Respiratory: Denies cough or shortness of breath Cardiovascular: Denies chest pain or edema GI: nausea, vomiting. Denies abdominal pain, bloody stools or diarrhea : Denies dysuria Musculoskeletal: Denies back pain or joint pain Integument: Denies rash Neurologic: Denies headache, focal weakness or sensory changes Endocrine: Denies polyuria or polydipsia Lymphatic: Denies swollen glands Psychiatric: Denies depression or anxiety Allergies: Allergies: Allergies Coded Allergies Type Severity Reaction Last Updated Verified No Known Drug Allergies 02/04/18 No Physical Exam: PE: Constitutional: Well developed, well nourished, obese, no acute distress, non- toxic appearance. [] HENT: Normocephalic, atraumatic, bilateral external ears normal, oropharynx moist, no oral exudates, nose normal. [] Eyes: PERRLA, EOMI, conjunctiva normal, no discharge. [] Neck: Normal range of motion, no tenderness, supple, no stridor. [] Cardiovascular:Heart rate regular rhythm, no murmur [] Lungs & Thorax: Bilateral breath sounds clear to auscultation [] Abdomen: Bowel sounds normal, soft, no tenderness, no masses, no pulsatile masses. [] Skin: Warm, dry, no erythema, no rash. [] Back: No tenderness, no CVA tenderness. [] Extremities: No tenderness, no cyanosis, no clubbing, ROM intact, no edema. [] Neurologic: Alert and oriented X 3, normal motor function, normal sensory function, no focal deficits noted. [] Psychologic: Affect normal, judgement normal, mood normal. [] EKG: EKG: [] Radiology/Procedures: Radiology/Procedures: [] Impressions: Single view abdomen dated 02/13/2022. COMPARISON: None. INDICATION: Vomiting. FINDINGS: Single supine view the abdomen shows nondilated gas-filled loops of bowel throug hout. No abnormal calcification. There is some altered density along the right psoas margin with ill-definition of the right L4 transverse process. Surgical clip in the region. There is also focus of increased density near the lower pole right kidney is indeterminate. IMPRESSION: 1. Nonobstructive bowel gas pattern. 2. There is avulsion density at the lower pole right kidney and along the right psoas margin, indeterminate. This could be related to artifact from overlying bowel contents. Follow-up CT or abdominal series may provide additional information. Electronically signed by: Sheela Valero MD (02/13/2022 7:36 AM) [id number] DICTATED AND SIGNED BY: SHEELA VALERO MD DATE: 02/13/22 0731 CC: DULCE HADLEY MD; CASSANDRA GALEAS DO ~ Heart Score: C/O Chest Pain: N/A Risk Factors: Risk Factors: DM, Current or recent (<one month) smoker, HTN, HLP, family history of CAD, obesity. Risk Scores: Score 0 - 3: 2.5% MACE over next 6 weeks - Discharge Home Score 4 - 6: 20.3% MACE over next 6 weeks - Admit for Clinical Observation Score 7 - 10: 72.7% MACE over next 6 weeks - Early Invasive Strategies Course & Med Decision Making: Course & Med Decision Making Pertinent Labs and Imaging studies reviewed. (See chart for details) The patient's labs are unremarkable. He has been given 4 mg of Zofran and a liter of normal saline. He has had no vomiting in the emergency room. KUB is negative for obstruction or significant constipation. I will discharge him with a prescription for Zofran. He is stable for discharge at this time. [] Dragon Disclaimer: Dragon Disclaimer: This electronic medical record was generated, in whole or in part, using a voice recognition dictation system. Departure Departure: Impression: Primary Impression: Viral gastroenteritis Disposition: HOME / SELF CARE / HOMELESS Condition: IMPROVED Referrals: DULCE HADLEY MD (PCP) Patient Instructions: Viral Gastroenteritis, [id number] Scripts Ondansetron (ONDANSETRON ODT) 4 Mg Tab.rapdis 1 TAB PO PRN Q6-8HRS PRN for VOMITING, #16 TAB Prov: CASSANDRA GALEAS DO 02/13/22 CASSANDRA GALEAS DO Feb 13, 2022 06:58
[2022-02-13] MEDS: IV NORMAL SALINE 1,000ML 1,000 ML IV ONE (07:15)
[2022-02-13] MEDS: ONDANSETRON PF 4 MG/2 ML VIAL. IVP ONE (07:16)
[2022-02-13 07:34] LABS: BASO % 0 % (0-3); EOS # 0.1 x10^3/uL (0.0-0.7); EOS % 1 % (0-3); HEMATOCRIT 43.7 % (39.0-53.0); LYMPH # 1.7 x10^3/uL (1.0-4.8); LYMPH % 15 % (24-48); MEAN CORPUSCULAR HEMOGLOBIN 31 pg (25-35); MEAN CORPUSCULAR HGB CONC 34 g/dL (31-37); MEAN CORPUSCULAR VOLUME 89 fL (79-100); MONO # 0.7 x10^3/uL (0.0-1.1); MONO % 6 % (0-9); NEUT # 8.7 x10^3uL (1.8-7.7); NEUT % 78 % (31-73); PLATELET COUNT 304 x10^3/uL (140-400); RED BLOOD COUNT 4.89 x10^6/uL (4.30-5.70); RED CELL DISTRIBUTION WIDTH 12.7 % (11.5-14.5); WHITE BLOOD COUNT 11.2 x10^3/uL (4.0-11.0)
--- NOTE | 2022-02-13 07:38 | RAD ---
Single view abdomen dated 02/13/2022. COMPARISON: None. INDICATION: Vomiting. FINDINGS: Single supine view the abdomen shows nondilated gas-filled loops of bowel throughout. No abnormal edilma cification. There is some altered density along the right psoas margin with ill-definition of the rig ht L4 transverse process. Surgical clip in the region. There is also focus of increased density near the lower pole right kidney is indeterminate. IMPRESSION: 1. Nonobstructive bowel gas pattern. 2. There is avulsion density at the lower pole right kidney and along the right psoas margin, indeter minate. This could be related to artifact from overlying bowel contents. Follow-up CT or abdominal se jace may provide additional information. Electronically signed by: Malik Valero MD (02/13/2022 7:36 AM) [id number]
[2022-02-13 07:47] LABS: CALCIUM 9.9 mg/dL (8.5-10.1); GFR 81.9; POTASSIUM 3.7 mmol/L (3.5-5.1)
[2022-02-13 07:53] LABS: ALBUMIN 4.2 g/dL (3.4-5.0); ALBUMIN/GLOBULIN RATIO 1.3 (1.0-1.7); TOTAL BILIRUBIN 0.9 mg/dL (0.2-1.0); TOTAL PROTEIN 7.5 g/dL (6.4-8.2)
[2022-02-13] MEDS ORDERED: ONDA4TAB12 PO (08:03)
[2022-02-13 08:10] VITALS: BP 136/79
[2022-02-14] MEDS ORDERED: PROC10TA57 PO (10:02)
[2022-02-14] MEDS ORDERED: FAMO-63 PO (10:02)
[2022-02-14] MEDS ORDERED: DIPH25CA58 PO (10:02)
== END 2022-02-13 08:10 | disposition home or self-care (01) ==
LOC: ER 06:48
DX: A08.4 Viral intestinal infection, unspecified (principal); I10 Essential (primary) hypertension
CPT/HCPCS: 36415; 74018; 80053; 85025; 96361; 96374; 99284; J2405; J7030

== ENCOUNTER 2022-02-14 07:15 | Emergency (ER) | payer OTHER ==
[~2022-02-14] VITALS: Ht 193 cm; Wt 127.6 kg
[~2022-02-14 07:15] MED LIST changes: +ONDA4TAB12 PO
--- NOTE | 2022-02-14 07:58 | PHYS DOC ---
Past History Past Medical History: Anxiety, Depression, Diabetes, Hypertension Past Surgical History: Appendectomy Smoking: Non-smoker Alcohol Use: Sober Additional Alcohol Information: for 2 month Drug Use: None General Adult EDM: Chief Complaint: NAUSEA/VOMITING/DIARRHEA HPI: HPI: Patient is a 41-year-old male who presents with nausea vomiting and diarrhea. Symptoms been present for about a week. Patient is thrown up several times yesterday and today. He has had several watery stools as well. No fever that he is aware of. He does not have any abdominal pain at this time but does have some discomfort in association with the emesis. No sick contacts. Review of Systems: Review of Systems: Constitutional: Denies fever Eyes: Denies change in visual acuity or eye pain HENT: Denies sore throat Respiratory: Denies shortness of breath Cardiovascular: Denies chest pain GI: Denies abd pain : Denies dysuria Musculoskeletal: Denies back or extremity injury Integument: Denies rash or skin lesions Neurologic: Denies headache, focal weakness or sensory changes All other systems were reviewed and found to be within normal limits, except as documented in this note. Current Medications: Current Meds: Current Medications Medications (Trade) Dose Ordered Sig/Jayjay Start Time Stop Time Status Last Admin Dose Admin Diphenhydramine HCl (Benadryl) 50 mg 1X ONCE 02/14/22 08:00 02/14/22 08:01 UNV Famotidine (Pepcid Vial) 20 mg 1X ONCE 02/14/22 08:00 02/14/22 08:01 UNV Prochlorperazine Edisylate (Compazine) 10 mg 1X ONCE 02/14/22 08:00 02/14/22 08:01 UNV Sodium Chloride 1,000 ml @ 1,000 mls/hr 1X ONCE 02/14/22 08:00 02/14/22 08:59 UNV Allergies: Allergies: Allergies Coded Allergies Type Severity Reaction Last Updated Verified No Known Drug Allergies 02/14/22 No Physical Exam: PE: Constitutional: Well developed, well nourished, no acute distress, non-toxic appearance. HENT: Normocephalic, atraumatic, bilateral external ears normal, mucosa moist, nose normal. Eyes: EOMI, conjunctiva normal, no discharge. Neck: Normal range of motion, supple, no stridor, no meningeal signs. Cardiovascular: Regular rate and rhythm Lungs & Thorax: Bilateral breath sounds clear to auscultation Abdomen: Soft, no tenderness or obvious masses Skin: Warm, dry, no erythema, no rash. Extremities: No tenderness, no cyanosis, no clubbing, ROM intact, no edema. Neurologic: Alert and oriented, normal motor function, normal sensory function, no focal deficits noted. Psychologic: Affect normal, judgement normal, mood normal. Current Patient Data: Vital Signs: Vital Signs Date Time Temp Pulse Resp B/P (MAP) Pulse Ox O2 Delivery O2 Flow Rate FiO2 02/14/22 07:35 98.1 81 30 136/79 (98) 100 Room Air EKG: EKG: Twelve-lead EKG demonstrates a sinus rhythm with an overall rate of 70 bpm. [place], QRS and QT corrected are within normal limits. No ST segment elevation or depression. Radiology/Procedures: Radiology/Procedures: [] Heart Score: C/O Chest Pain: No Risk Factors: Risk Factors: DM, Current or recent (<one month) smoker, HTN, HLP, family history of CAD, obesity. Risk Scores: Score 0 - 3: 2.5% MACE over next 6 weeks - Discharge Home Score 4 - 6: 20.3% MACE over next 6 weeks - Admit for Clinical Observation Score 7 - 10: 72.7% MACE over next 6 weeks - Early Invasive Strategies Course & Med Decision Making: Course & Med Decision Making Pertinent Labs and Imaging studies reviewed. (See chart for details) [] This is a 41-year-old male with nausea vomiting diarrhea. He has labs done yesterday which were unremarkable. He has been taking Zofran at home which has not helped much. He was given a liter of normal saline, 10 of Compazine, 50 of Benadryl and 20 Pepcid IV today. On reassessment symptoms are much improved. We will give him prescriptions for the above medications, he is stable for discharge at this time. Dragon Disclaimer: Dragon Disclaimer: This electronic medical record was generated, in whole or in part, using a voice recognition dictation system. Departure Departure: Impression: Primary Impression: Nausea vomiting and diarrhea Disposition: HOME / SELF CARE / HOMELESS Condition: STABLE Referrals: EVELINE ROBLES (PCP) Patient Instructions: Diarrhea, Nausea and Vomiting Scripts Famotidine (PEPCID) 20 Mg Tablet 1 TAB PO BID for abd pain, #20 TAB 3 Refills Prov: DEBORA JULES MD 02/14/22 Diphenhydramine Hcl (BENADRYL) 25 Mg Capsule 2 CAP PO Q6HRS for nausea for 30 Days, #40 CAP 0 Refills Prov: DEBORA JULES MD 02/14/22 Prochlorperazine Maleate (Compazine) 10 Mg Tablet 1 TAB PO Q6HRS for nausea for 5 Days, #20 TAB 0 Refills Prov: DEBORA JULES MD 02/14/22 DEBORA JULES MD Feb 14, 2022 07:58
[2022-02-14] MEDS: IV NORMAL SALINE 1,000ML 1,000 ML IV ONE (08:00)
[2022-02-14] MEDS: diphenhydrAMINE 50 MG/ML VIAL IVP ONE (08:10)
[2022-02-14] MEDS: PROCHLORPERAZINE 10 MG/2 ML VIAL. IV ONE (08:10)
[2022-02-14] MEDS: FAMOTIDINE 20 MG/2 ML VIAL IVP ONE (08:11)
[2022-02-14 09:36] VITALS: BP 140/68
[2022-02-14] MEDS ORDERED: DIPH25CA58 PO (10:02)
[2022-02-14] MEDS ORDERED: PROC10TA57 PO (10:02)
[2022-02-14] MEDS ORDERED: FAMO-63 PO (10:02)
--- NOTE | 2022-02-14 21:29 | EKG ---
[address] [address] Test Date: 2022-02-14 Test Time: 07:29:44 Pat Name: ALFREDO BURNS Department: Room: Gender: M Buckler And Lacer: GIL : 1980 Requested By: DEBORA JULES Order Number: [id number] Reading MD: Lucas Quan Measurements Intervals [place] Rate: 91 P: 38 [place]: 150 QRS: 57 QRSD: 94 T: 34 QT: 346 QTc: 427 Interpretive Statements SINUS RHYTHM MILD NON SPECIFIC ST-T WAVE CHANGES Electronically Signed On 02-16-2022 17:05:20 CDT by Lucas Quan
== END 2022-02-14 10:30 | disposition home or self-care (01) ==
LOC: ER 07:15
DX: R11.2 Nausea with vomiting, unspecified (principal); R19.7 Diarrhea, unspecified
CPT/HCPCS: 93005; 96361; 96374; 96375; 99284; J0780; J1200; J3490; J7030